=== PATIENT | male | born 1980 | race African-American/Black ===

== ENCOUNTER → 2020-04-26 11:22 | Outpatient (BNVA) | payer MEDICAID, SELFPAY | PROVIDERS: PCP Internal Medicine; Visit Provider Internal Medicine | DX: G47.33 Obstructive sleep apnea (adult) (pediatric) (principal); E66.01 Morbid (severe) obesity due to excess calories; Z68.42 Body mass index [BMI] 45.0-49.9, adult; Z99.89 Dependence on other enabling machines and devices | CPT/HCPCS: 99212 ==

== ENCOUNTER → 2021-05-10 15:10 | Outpatient (BNVA) | payer MEDICAID, SELFPAY | PROVIDERS: PCP Internal Medicine; Visit Provider Internal Medicine | DX: G47.33 Obstructive sleep apnea (adult) (pediatric) (principal); E66.01 Morbid (severe) obesity due to excess calories; Z99.89 Dependence on other enabling machines and devices; Z68.43 Body mass index [BMI] 50.0-59.9, adult | CPT/HCPCS: 99212 ==

== ENCOUNTER 2021-06-06 | Outpatient (REF) | payer MEDICAID, SELFPAY ==
[2021-06-09 15:40] LABS: H Pylori Breath Test Positive (Negative)
== END 2021-06-06 00:01 | disposition home or self-care (01) ==
LOC: HO.LNP
PROVIDERS: Visit Provider Physician Assistant
DX: Z01.818 Encounter for other preprocedural examination (principal); E66.01 Morbid (severe) obesity due to excess calories
CPT/HCPCS: 83013

== ENCOUNTER → 2021-06-06 11:03 | Outpatient (BNVA) | payer MEDICAID, SELFPAY | PROVIDERS: PCP Internal Medicine; Visit Provider Physician Assistant | DX: Z11.0 Encounter for screening for intestinal infectious diseases (principal) | CPT/HCPCS: 83013; 99211 ==

== ENCOUNTER → 2021-06-13 08:29 | Outpatient (BNVA) | payer MEDICAID, SELFPAY | PROVIDERS: PCP Internal Medicine; Visit Provider Physician Assistant ==

== ENCOUNTER → 2021-06-14 08:23 | Outpatient (BNVA) | payer MEDICAID, SELFPAY | PROVIDERS: PCP Internal Medicine; Visit Provider Surgery ==

== ENCOUNTER → 2021-07-10 12:10 | Outpatient (BNVA) | payer MEDICAID, SELFPAY | PROVIDERS: PCP Internal Medicine; Visit Provider Dietitian, Registered ==

== ENCOUNTER 2021-07-17 09:20 | Outpatient (REF) | payer MEDICAID, SELFPAY ==
[2021-07-17 10:46] LABS: Basophils Percent Auto 0.4 % (0-2); Eosinophils Percent Auto 0.5 % (0-4); Hematocrit 41.3 % (42.0-52.0); Hemoglobin 13.9 g/dl (14.0-18.0); Imm Gran Abs Auto 0.05 X10*3/uL (0.00-0.03); Imm Gran Pct Auto 0.7 % (0.0-0.4); Lymphocytes Absolute Auto 1.7 X10*3/uL (1.2-4.9); Lymphocytes Percent Auto 23.1 % (20-40); MANUAL DIFF FLAG NO; Mean Corpuscular HGB Conc 33.7 g/dl (31.0-36.0); Mean Corpuscular Hemoglobin 29.4 pg (27.0-33.0); Mean Corpuscular Volume 87.3 fL (80.0-98.0); Monocytes Absolute Auto 0.5 X10*3/uL (0.1-1.2); Monocytes Percent Auto 6.8 % (2-11); Neutrophils Absolute Auto 5.1 x10*3/uL (2.0-8.3); Neutrophils Percent Auto 68.5 % (45-73); Platelet Count 310 X10*3/uL (160-400); Red Blood Count 4.73 X10*6/uL (4.60-5.80); Red Cell Distribution Width 12.6 % (11.0-16.0); White Blood Count 7.4 X10*3/uL (4.8-10.8)
[2021-07-17 10:50] LABS: Alanine Aminotransferase 19 U/L (0-40); Albumin Level 4.9 g/dL (3.5-5.0); Alkaline Phosphatase 53 U/L (39-117); Anion Gap 16 (12-20); Aspartate Amino Transferase 16 U/L (5-37); Bilirubin Total 0.5 mg/dL (0.0-1.0); Blood Urea Nitrogen 31 mg/dL (9-16); Calcium 9.9 mg/dL (8.4-10.2); Carbon Dioxide 25 mmol/L (22-29); Chloride 103 mmol/L (96-108); Cholesterol 279 mg/dL; Estimated Glomerular Filt Rate 43; Glucose Random 123 mg/dL (60-115); HDL Cholesterol 50 mg/dL; Iron 83 mcg/dL (45-160); LDL Cholesterol Calculated 197 mg/dl; Percent Iron Saturation 22 % (15-50); Potassium 4.9 mmol/L (3.3-5.1); Sodium 139 mmol/L (135-145); Total Iron Binding Capacity 379 mcg/dL (228-428); Total Protein 8.7 g/dL (6.5-8.0); Triglycerides 160 mg/dL; Unsaturated Iron Binding 296 ug/dL
[2021-07-17 10:59] LABS: Estimated Average Glucose 128 mg/dL; Hemoglobin A1c % 6.1 %
[2021-07-17 11:15] LABS: Ferritin 378 ng/mL (20-250); Insulin 33 uU/mL (2-29); TSH reflex Free T4 4.62 uIU/mL (0.32-4.0); Vitamin D 25-OH Total 12.8 ng/mL (>30)
[2021-07-17 11:36] LABS: Folate 14.8 ng/mL (> or = 4.0); Vitamin B12 286 pg/mL (200-900)
[2021-07-17 11:49] LABS: Free T4 (Free Thyroxine) 1.29 ng/dL (0.71-1.85)
[2021-07-18 14:31] LABS: Calcium (PTHI) 9.7 mg/dL (8.6-10.3); PTHI 134 pg/mL (16-77)
[2021-07-20 13:42] LABS: Zinc 85 mcg/dL (60-130)
[2021-07-21 13:32] LABS: Vitamin B1 14 nmol/L (8-30)
[2021-07-22 19:01] LABS: Vitamin A 102 mcg/dL (38-98)
== END 2021-07-17 09:21 | disposition home or self-care (01) ==
LOC: HO.LAB 09:20
PROVIDERS: PCP Internal Medicine; Visit Provider Surgery
DX: E11.9 Type 2 diabetes mellitus without complications (principal); E66.01 Morbid (severe) obesity due to excess calories; G47.33 Obstructive sleep apnea (adult) (pediatric); I10 Essential (primary) hypertension; K21.9 Gastro-esophageal reflux disease without esophagitis; Z99.89 Dependence on other enabling machines and devices
CPT/HCPCS: 36415; 80053; 80061; 82306; 82607; 82728; 82746; 83036; 83525; 83540; 83970; 84425; 84439; 84443; 84590; 84630; 85025; 86140

== ENCOUNTER 2021-08-10 09:23 | Outpatient (REF) | payer MEDICAID, SELFPAY ==
--- NOTE | ~2021-08-10 | XR_ITS ---
EXAMINATION: XR CHEST CLINICAL INFORMATION: Morbid obesity COMPARISON: None TECHNIQUE: 2 views of the chest were obtained. FINDINGS: No significant abnormality is noted involving the heart, lungs, mediastinum, bony thorax or soft tissues. XR/XR chest 2V IMPRESSION: No acute disease.
[2021-08-11 11:06] LABS: H Pylori Breath Test Positive (Negative)
== END 2021-08-10 09:24 | disposition home or self-care (01) ==
LOC: HO.XRAY 09:23
PROVIDERS: Surgery; PCP Internal Medicine; Visit Provider Physician Assistant
DX: E66.01 Morbid (severe) obesity due to excess calories (principal); K21.9 Gastro-esophageal reflux disease without esophagitis; G47.33 Obstructive sleep apnea (adult) (pediatric); I10 Essential (primary) hypertension; E11.9 Type 2 diabetes mellitus without complications; Z99.89 Dependence on other enabling machines and devices
CPT/HCPCS: 36415; 71046; 83013; 99211

== ENCOUNTER → 2021-08-11 08:18 | Outpatient (BNVA) | payer MEDICAID, SELFPAY | PROVIDERS: PCP Internal Medicine; Visit Provider Surgery | DX: Z13.89 Encounter for screening for other disorder (principal) ==

== ENCOUNTER → 2021-11-08 14:12 | Outpatient (BNVA) | payer MEDICAID, SELFPAY | PROVIDERS: PCP Internal Medicine; Visit Provider Internal Medicine | DX: G47.33 Obstructive sleep apnea (adult) (pediatric) (principal); E66.01 Morbid (severe) obesity due to excess calories; Z68.43 Body mass index [BMI] 50.0-59.9, adult; Z99.89 Dependence on other enabling machines and devices | CPT/HCPCS: 99212 ==

== ENCOUNTER → 2022-05-09 14:09 | Outpatient (BNVA) | payer MEDICAID, SELFPAY | PROVIDERS: PCP Internal Medicine; Visit Provider Internal Medicine | DX: G47.33 Obstructive sleep apnea (adult) (pediatric) (principal); E66.01 Morbid (severe) obesity due to excess calories; Z68.43 Body mass index [BMI] 50.0-59.9, adult; Z99.89 Dependence on other enabling machines and devices | CPT/HCPCS: 99212 ==

== ENCOUNTER → 2022-11-08 13:32 | Outpatient (BNVA) | payer OTHER, SELFPAY | PROVIDERS: PCP Internal Medicine; Visit Provider Internal Medicine | DX: G47.33 Obstructive sleep apnea (adult) (pediatric) (principal); E66.01 Morbid (severe) obesity due to excess calories; M54.9 Dorsalgia, unspecified; Z68.43 Body mass index [BMI] 50.0-59.9, adult; Z99.89 Dependence on other enabling machines and devices | CPT/HCPCS: 99212 ==

== ENCOUNTER 2023-05-15 14:13 | Outpatient (AMB) | payer OTHER, SELFPAY ==
--- NOTE | 2023-05-15 14:16 | MHC.OFFVIS ---
Intake Vital Signs 05/15/23 14:19 Height 5 ft 7 in Weight 295 lb BMI 46.2 BP 122/80 Blood Pressure Location Lt brachial Position Sitting Pulse 90 Pulse Source Pulse Oximeter Pulse Oximetry (%) 99 Oxygen Delivery Method Room Air Intake Visit Reasons: Obstructive sleep apnea Intake Note: pt is here for follow up and states he is doing well, needs all new supplies Home Service Demonstrator Required: No Allergies peniciliin Allergy (Severe, Uncoded 05/15/23 14:28) Vomiting, headache Medication List - Last Reconciled 05/15/23 by Stacie Allen MD amiodarone 200 mg PO DAILY levothyroxine 25 mcg PO DAILY rosuvastatin 20 mg PO DAILY sacubitril-valsartan 49-51 mg (Entresto) 1 tab PO BID spironolactone 25 mg PO DAILY torsemide 20 mg PO DAILY Do you need a note to return to daycare/school/sports/work: No HPI Obstructive sleep apnea HPI Details 42 YEARS OLD GENTLEMAN, VERY PLEASANT, MORBIDLY OBESE, HAS OBSTRUCTIVE SLEEP APNEA. HE IS HERE. FOR 6 MONTHS FOLLOW-UP HE HAS BEEN SOMEWHAT IRREGULAR IN USING THE CPAP. SAY IS THAT HE DOES SLEEP WELL EVEN WITHOUT THE MASK ON. HE HAS LOST SIGNIFICANT AMOUNT OF WEIGHT, BUT HIS BMI IS STILL 46. [facility]LY [facility] Medical History Coronary artery disease GERD (gastroesophageal reflux disease) Back pain Anxiety Depression Non-insulin dependent type 2 diabetes mellitus Hypertension HEIDI on CPAP Morbid obesity Surgical History No history of previous surgery Family History Mother No problems noted. Father No problems noted. Brother No problems noted. Sister No problems noted. Social History Alcohol intake: former Patient Tobacco Use Status: Former Tobacco user Review of Systems Const All systems reviewed & are unremarkable except as noted in HPI and below Eyes Reports no additional complaints ENT Reports no additional complaints Card Denies chest pain, Denies irregular heart rhythm and Denies leg edema Resp Reports no additional complaints, Denies cough and Denies wheezing GI Reports no additional complaints and Reports heartburn (GERD SYMPTOMS CONTROLLED WITH MEDICATION) Reports no additional complaints Musc Reports no additional complaints Skin/Breast Reports system reviewed and no additional complaints, except as documented Neuro Reports no additional complaints Psych Reports no additional complaints Aller/Immun Denies wheezing Physical Exam Vital Signs: Last Vital Signs Pulse 90 05/15/23 14:19 BP 122/80 05/15/23 14:19 Pulse Ox 99 05/15/23 14:19 Oxygen Delivery Method Room Air 05/15/23 14:19 BMI result Body Mass Index 46.2 Const Other: GROSSLY OVERWEIGHT General: comfortable, no acute distress, alert and awake Orientation/consciousness: patient oriented x3 HEENT Head: Yes normal to inspection General nose exam: No nasal polyps present and No nasal discharge present Face and sinus: Yes sinuses nontender Mouth: oropharynx normal Throat: Yes posterior oropharynx normal Eyes General: appearance normal, both eyes and all related structures Neck Neck: Yes normal visual inspection, Yes no lymphadenopathy, Yes trachea midline and Yes no JVD Thyroid: Thyroid normal Chest Chest palpation & inspection: normal inspection of the chest, normal palpation of entire chest wall and no tenderness Resp Effort & Inspection: normal respiratory effort Auscultation: clear to auscultation bilaterally, no rales and no wheezes Percussion: percussion normal Cardio Palpation: PMI not normal (Not palpable) Rate: regular rate Rhythm: regular rhythm Heart sounds: no gallops and no murmurs Peripheral pulses: Peripheral pulses 2+ throughout GI Palpation (GI): Soft to palpation, nontender, No hepatosplenomegaly present, no masses and Other GI palpation findings present (Abdomen is obese and protuberant) Auscultation: normal bowel sounds Back/Spine/Pelvis Thoracic/Lumbar Spine: thoracic and lumbar spine normal to inspection Skin General skin exam: no rashes or lesions noted Neuro General: patient oriented x3 and no focal motor deficits Cranial nerves: Yes CN's II-XII intact bilaterally Extrem General: Yes normal to inspection, Yes no clubbing, cyanosis or edema and Yes no calf tenderness Psych Appearance: grossly normal and well kempt Speech and movement: Normal speech and movement present Results Reviewed Results Reviewed: COMPLIANCE REPORT IS REVIEWED AND HE HAS USED ONLY 16/30 NIGHTS, 53%. HIS AVERAGE USE IT PER NIGHT IS 4 HOURS 23 MINUTES BUT SOME OF THE NIGHTS HE USES ONLY FOR A FEW HOURS. THERE IS NO SIGNIFICANT AIR LEAK RESIDUAL AHI 4.2 Assessment & Plan Assessment & Plan (1) Morbid obesity: Comment: STILL MORBIDLY OBESE , LAST ABOUT 19 LB OF WEIGHT SINCE LAST VISIT. COMPARED TO VISIT IN NOVEMBER 2022 ,WEIGHT IS DOWN BY AN OTHER 32 LBs Code(s): E66.01 - Morbid (severe) obesity due to excess calories Plan: HE IS COMMENDED FOR LOSING WEIGHT. ENCOURAGED TO KEEP ON FOLLOWING THE DIET AND WALK DAILY. I HAVE SET UP HIS GOAL OF LOSING ABOUT 25 LB IN THE NEXT 6 MONTHS. (2) HEIDI on CPAP: Comment: HAS SEVERE HEIDI , REQUIRING HIGH , BILAEVEL PRESSURES . LATELY HIS COMPLIANCE IS SUBOPTIMAL. HE HAS LOST ABOUT 33 LB IN THE LAST 6 MONTHS, SAY IS THAT HE SLEEPS OKAY EVEN WITHOUT THE CPAP. Code(s): G47.33 - Obstructive sleep apnea (adult) (pediatric); Z99.89 - Dependence on other enabling machines and devices Plan: FOR THE INTERFACE USING NASAL PILLOWS , PRESSURE SETTING : 20/16 CMs I HAVE EDUCATED HIM THOROUGHLY AND STRESS THAT HE NEEDS TO USE CPAP EVERY NIGHT AT LEAST FOR 4 HOURS. THIS IS IMPORTANT BECAUSE HE HAS CORONARY ARTERY DISEASE AND HISTORY OF ARRHYTHMIAS. ENCOURAGED TO KEEP ON LOSING WEIGHT AND WHEN HE IS DOWN TO 250 LB, WE MAY DO ANOTHER HOME-BASED SLEEP STUDY. Coding Level of Care Code Est Pt Level 3 (36987) Diagnoses Morbid obesity E66.01 HEIDI on CPAP G47.33; Z99.89
[2023-05-15 14:19] VITALS: BP 122/80; PULSE 90; O2SAT 99; BMI 46.2
== END 2023-05-15 14:40 | disposition home or self-care (01) ==
PROVIDERS: PCP Internal Medicine; Visit Provider Internal Medicine
DX: E66.01 Morbid (severe) obesity due to excess calories (principal); G47.33 Obstructive sleep apnea (adult) (pediatric); Z99.89 Dependence on other enabling machines and devices
CPT/HCPCS: 99213

== ENCOUNTER → 2023-05-15 14:13 | Outpatient (BNVA) | payer MEDICAID, SELFPAY | PROVIDERS: PCP Internal Medicine; Visit Provider Internal Medicine | DX: G47.33 Obstructive sleep apnea (adult) (pediatric) (principal); E66.01 Morbid (severe) obesity due to excess calories; Z99.89 Dependence on other enabling machines and devices; Z68.42 Body mass index [BMI] 45.0-49.9, adult | CPT/HCPCS: 99212 ==

== ENCOUNTER 2023-11-20 14:24 | Outpatient (AMB) | payer MEDICAID, SELFPAY ==
--- NOTE | 2023-11-20 14:35 | MHC.OFFVIS ---
Vital Signs 11/20/23 14:36 Height 5 ft 7 in Weight 273 lb 5.971 oz BMI 42.8 BP 102/70 Blood Pressure Location Lt brachial Position Sitting Pulse 63 Pulse Source Pulse Oximeter Pulse Oximetry (%) 99 Oxygen Delivery Method Room Air Intake Visit Reasons: Obstructive sleep apnea Intake Note: pt is here for follow up of HEIDI and states he only misses days when he falls asleep to fast. Electron Beam Photo Mask Maker Required: No Allergies peniciliin Allergy (Severe, Uncoded 11/20/23 14:51) Vomiting, headache Medication List - Last Reconciled 11/20/23 by Stacie Allen MD amiodarone 200 mg PO DAILY levothyroxine 25 mcg PO DAILY rosuvastatin 20 mg PO DAILY sacubitril-valsartan 49-51 mg (Entresto) 1 tab PO BID spironolactone 25 mg PO DAILY torsemide 20 mg PO DAILY Do you need a note to return to daycare/school/sports/work: No HPI HPI Obstructive sleep apnea: Details: This 43 years old gentleman is here for his sleep apnea follow-up after 6 months, He is a regular user of CPAP however on some nights when he comes home, he falls asleep quickly without putting on the mask. Even without the CPAP he does complete his sleep for about 6 hours every night. When he uses the CPAP he wakes up refreshed. He denies daytime sleepiness. He denies any issues with the fullface mask and CPAP device. He say is that he goes to gym every day and exercises. He has lost 22 lb in the last 6 months. [facility] Medical History Coronary artery disease GERD (gastroesophageal reflux disease) Back pain Anxiety Depression Non-insulin dependent type 2 diabetes mellitus Hypertension HEIDI on CPAP Morbid obesity Surgical History No history of previous surgery Family History Mother No problems noted. Father No problems noted. Brother No problems noted. Sister No problems noted. Social History Alcohol intake: former Patient Tobacco Use Status: Former Tobacco user Review of Systems Const All systems reviewed & are unremarkable except as noted in HPI and below Eyes Reports no additional complaints ENT Reports no additional complaints Card Denies chest pain, Denies irregular heart rhythm and Denies leg edema Resp Reports no additional complaints, Denies cough and Denies wheezing GI Reports no additional complaints and Reports heartburn (GERD SYMPTOMS CONTROLLED WITH MEDICATION) Reports no additional complaints Musc Reports no additional complaints Skin/Breast Reports system reviewed and no additional complaints, except as documented Neuro Reports no additional complaints Psych Reports no additional complaints Aller/Immun Denies wheezing Physical Exam Vital Signs: Last Vital Signs Pulse 63 11/20/23 14:36 BP 102/70 11/20/23 14:36 Pulse Ox 99 11/20/23 14:36 Oxygen Delivery Method Room Air 11/20/23 14:36 BMI result Body Mass Index 42.8 Const Other: GROSSLY OVERWEIGHT General: comfortable, no acute distress, alert and awake Orientation/consciousness: patient oriented x3 HEENT Head: Yes normal to inspection General nose exam: No nasal polyps present and No nasal discharge present Face and sinus: Yes sinuses nontender Mouth: oropharynx normal Throat: Yes posterior oropharynx normal Eyes General: appearance normal, both eyes and all related structures Neck Neck: Yes normal visual inspection, Yes no lymphadenopathy, Yes trachea midline and Yes no JVD Thyroid: Thyroid normal Chest Chest palpation & inspection: normal inspection of the chest, normal palpation of entire chest wall and no tenderness Resp Effort & Inspection: normal respiratory effort Auscultation: clear to auscultation bilaterally, no rales and no wheezes Percussion: percussion normal Cardio Palpation: PMI not normal (Not palpable) Rate: regular rate Rhythm: regular rhythm Heart sounds: no gallops and no murmurs Peripheral pulses: Peripheral pulses 2+ throughout GI Palpation (GI): Soft to palpation, nontender, No hepatosplenomegaly present, no masses and Other GI palpation findings present (Abdomen is obese and protuberant) Auscultation: normal bowel sounds Back/Spine/Pelvis Thoracic/Lumbar Spine: thoracic and lumbar spine normal to inspection Skin General skin exam: no rashes or lesions noted Neuro General: patient oriented x3 and no focal motor deficits Cranial nerves: Yes CN's II-XII intact bilaterally Extrem General: Yes normal to inspection, Yes no clubbing, cyanosis or edema and Yes no calf tenderness Psych Appearance: grossly normal and well kempt Speech and movement: Normal speech and movement present Results Reviewed Results Reviewed: Compliance report for the last 30 nights reviewed. He has used 21/30 nights 70%. Average use it per night 4 hours 7 minutes. There is no significant air leak. However residual AHI is still 11.3. It is due to mixed sleep apnea. Assessment & Plan Assessment & Plan (1) Morbid obesity: Comment: STILL MORBIDLY OBESE , BUT CONTINUES TO LOSE WEIGHT. SINCE HIS LAST VISIT IN MAY OF THIS YEAR HE HAS LOST ANOTHER 22 LB. Code(s): E66.01 - Morbid (severe) obesity due to excess calories Category: Medical Plan: COMMENDED FOR LOSING WEIGHT. ADVISED TO CONTINUE. WATCHING HIS DIET DO EXERCISES IN THE GYM DAILY (2) Hypothyroidism: Comment: THIS GENTLEMAN IS ON AMIODARONE 200 MG DAILY FOR TREATMENT OF HIS CARDIAC ARRHYTHMIAS. HE HAS DEVELOPED HYPOTHYROIDISM WHICH IS BEING TREATED WITH A SMALL DOSE OF LEVOTHYROXINE. HE IS BEING FOLLOWED BY HIS PRIMARY CARE PHYSICIAN AND HE TELLS ME THAT HE DOES GET BLOOD TEST ONCE A YEAR. Code(s): E03.9 - Hypothyroidism, unspecified Category: Medical Plan: CONTINUE LEVOTHYROXINE 25 MG DAILY BUT I STRESS THAT HE MUST SEE HIS PRIMARY CARE DOCTOR OR SAVINGS COUNSELOR REGULARLY, . AND HAVE THE LAP TEST DONE REGULARLY (3) HEIDI on CPAP: Comment: HAS SEVERE HEIDI , REQUIRING BIPAP 20/16 CMS . HIS COMPLIANCE IS FAIRLY GOOD . BUT HE COULD STILL OPTIMIZE. Code(s): G47.33 - Obstructive sleep apnea (adult) (pediatric); Z99.89 - Dependence on other enabling machines and devices Category: Medical Plan: EXPLAINED TO HIM THAT HE NEEDS TO USE CPAP EVERY NIGHT, TRY TO PUT IT ON BEFORE FALLING ASLEEP. HE NEEDS TO USE IT FOR 5-6 HOURS EVERY NIGHT. Coding Level of Care Code Est Pt Level 3 (12420) Diagnoses Morbid obesity E66.01 Hypothyroidism E03.9 HEIDI on CPAP G47.33; Z99.89
[2023-11-20 14:36] VITALS: BP 102/70; PULSE 63; O2SAT 99; BMI 42.8
== END 2023-11-20 14:52 | disposition home or self-care (01) ==
PROVIDERS: PCP Internal Medicine; Visit Provider Internal Medicine
DX: E66.01 Morbid (severe) obesity due to excess calories (principal); E03.9 Hypothyroidism, unspecified; G47.33 Obstructive sleep apnea (adult) (pediatric); Z99.89 Dependence on other enabling machines and devices
CPT/HCPCS: 99213

== ENCOUNTER → 2023-11-20 14:24 | Outpatient (BNVA) | payer MEDICAID, SELFPAY | PROVIDERS: PCP Internal Medicine; Visit Provider Internal Medicine | DX: E66.01 Morbid (severe) obesity due to excess calories (principal); E03.9 Hypothyroidism, unspecified; G47.33 Obstructive sleep apnea (adult) (pediatric); Z99.89 Dependence on other enabling machines and devices | CPT/HCPCS: 99212 ==